=== PATIENT | female | born 1970 | race Hispanic/Latino ===

== ENCOUNTER 2020-03-08 18:11 | Observation (INO) | payer OTHER ==
[~2020-03-08] VITALS: Ht 172.7 cm; Wt 76.7 kg
[2020-03-08] MEDS ORDERED: ONDANSETRON HCL 4 MG/2 ML VIAL ONE (18:52)
[2020-03-08] MEDS ORDERED: SODIUM CHLORIDE 0.9% 1000ML 1,000 ML IV ONE (18:53)
[2020-03-08] MEDS ORDERED: MORPHINE SULFATE 2 MG/ML 1ML SYG ONE (18:53)
[2020-03-08] MEDS ORDERED: CEFOXITIN SODIUM 1 GM VIAL IVP SCH (19:00)
[2020-03-08 19:01] LABS: BASOPHILS % (AUTO) 0.2 % (0.0-5.0); HEMATOCRIT 39.1 % (36-48); LYMPHOCYTES % (AUTO) 7.3 % (21.0-51.0); MEAN CORPUSCULAR HEMOGLOBIN 30.6 pg (27.0-33.0); MEAN CORPUSCULAR HGB CONC 33.8 g/dL (32.0-36.0); MEAN CORPUSCULAR VOLUME 90.5 fL (79-99); MONOCYTES % (AUTO) 5.5 % (3.0-13.0); NEUTROPHILS % (AUTO) 86.6 % (40.0-77.0); PLATELET COUNT (AUTO) 131 K/uL (130-400); RED BLOOD CELL COUNT(AUTO) 4.32 MIL/uL (4.00-5.50); RED CELL DISTRIBUTION WIDTH 13.6 % (11.0-15.5); WHITE BLOOD COUNT (AUTO) 9.3 K/uL (4.8-10.8)
[2020-03-08 19:07] LABS: CREATININE 0.9 mg/dL (0.5-1.5); POTASSIUM 3.2 mmol/L (3.5-5.1)
[2020-03-08] MEDS ORDERED: ACETAMINOPHEN 650 MG SUPPOSITORY RC ONE (19:08)
[2020-03-08 19:12] LABS: ALBUMIN 3.5 g/dL (3.5-5.0); BILIRUBIN,TOTAL 0.7 mg/dL (0.2-1.0); TOTAL PROTEIN, SERUM 7.4 g/dL (6.0-8.3)
[2020-03-08] MEDS ORDERED: SODIUM CHLORIDE 0.9% 1000ML 1,000 ML IV SCH (19:15)
[2020-03-08] MEDS ORDERED: ACETAMINOPHEN 650 MG SUPPOSITORY RC PRN (19:15)
[2020-03-08] MEDS ORDERED: ONDANSETRON HCL 4 MG/2 ML VIAL IVP PRN (19:15)
[2020-03-08 19:29] LABS: INR 1.03 (0.85-1.15); PARTIAL THROMBOPLASTIN TIME 33.8 SEC (26.3-35.5); PROTHROMBIN TIME 11.1 SEC (9.6-11.6)
[2020-03-08] MEDS ORDERED: MAGNESIUM 2GM PREMIX 50ML 50 ML IV PRN (19:45)
[2020-03-08] MEDS: ZOSYN 3.375GM+NS 50ML 50 ML IV SCH (19:45)
[2020-03-08] MEDS ORDERED: ZOSYN 3.375GM+NS 50ML 50 ML IV ONE (20:34)
[2020-03-08 20:52] LABS: APPEARANCE,URINE Clear (CLEAR); BILIRUBIN,URINE Negative (NEGATIVE); COLOR,URINE Yellow (YELLOW); GLUCOSE, URINE (UA) Negative (NEGATIVE); KETONES,URINE 40 mg/dL (NEGATIVE); LEUKOCYTE ESTERASE ,URINE Small (NEGATIVE); NITRATE,URINE Negative (NEGATIVE); OCCULT BLOOD,URINE Moderate (NEGATIVE); PH,URINE 5.5 (5.0-8.0); PROTEIN,URINE Trace mg/dL (NEGATIVE)
[2020-03-08 21:00] LABS: RBC,URINE 0-1 /HPF (0-1)
[2020-03-08 21:01] LABS: BACTERIA,URINE Rare /HPF (None Seen)
[2020-03-08 21:02] LABS: SQUAMOUS EPITHELIAL CELL,UR Few /HPF (0-2)
[2020-03-08 21:10] VITALS: BP 113/64
[2020-03-08] MEDS: POTASSIUM CHLORIDE 20MEQ/100ML 100 ML IV PRN (21:48)
[2020-03-08] MEDS: FAMOTIDINE/PF 20 MG/2 ML VIAL IV SCH (21:48)
[2020-03-08] MEDS: LIDOCAINE HCL-MPF 1% 2ML VIAL IV PRN (21:48)
[2020-03-08] MEDS: LACTATED RINGERS 1000ML 1,000 ML IV SCH (21:49)
[2020-03-08 23:21] VITALS: BP 105/62
[2020-03-09] VITALS (23 sets, daily range): BP systolic 81–124; BP diastolic 45–73
[2020-03-09] MEDS: POTASSIUM CHLORIDE 20MEQ/100ML 100 ML IV PRN (01:39)
[2020-03-09] MEDS: LIDOCAINE HCL-MPF 1% 2ML VIAL IV PRN (01:40)
[2020-03-09] MEDS: MORPHINE SULFATE 2 MG/ML 1ML SYG IVP PRN ×2 (01:46→07:40)
[2020-03-09] MEDS: ZOSYN 3.375GM+NS 50ML 50 ML IV SCH ×3 (02:54→20:26)
[2020-03-09 04:46] LABS: BASOPHILS % (AUTO) 0.1 % (0.0-5.0); HEMATOCRIT 36.4 % (36-48); LYMPHOCYTES % (AUTO) 10.3 % (21.0-51.0); MEAN CORPUSCULAR HEMOGLOBIN 30.7 pg (27.0-33.0); MEAN CORPUSCULAR HGB CONC 33.5 g/dL (32.0-36.0); MEAN CORPUSCULAR VOLUME 91.7 fL (79-99); MONOCYTES % (AUTO) 7.3 % (3.0-13.0); NEUTROPHILS % (AUTO) 82.2 % (40.0-77.0); PLATELET COUNT (AUTO) 104 K/uL (130-400); RED BLOOD CELL COUNT(AUTO) 3.97 MIL/uL (4.00-5.50); RED CELL DISTRIBUTION WIDTH 13.8 % (11.0-15.5); WHITE BLOOD COUNT (AUTO) 6.8 K/uL (4.8-10.8)
[2020-03-09 05:09] LABS: ALBUMIN 3.1 g/dL (3.5-5.0); BILIRUBIN,TOTAL 0.5 mg/dL (0.2-1.0); CREATININE 0.8 mg/dL (0.5-1.5); MAGNESIUM 2.1 mg/dL (1.80-2.40); POTASSIUM 3.8 mmol/L (3.5-5.1); TOTAL PROTEIN, SERUM 6.7 g/dL (6.0-8.3)
[2020-03-09] MEDS: LACTATED RINGERS 1000ML 1,000 ML IV SCH ×3 (06:02→22:48)
[2020-03-09] MEDS: FAMOTIDINE/PF 20 MG/2 ML VIAL IV SCH ×2 (09:00→20:26)
--- NOTE | 2020-03-09 09:30 | NUR ---
INITIAL ASSESSMENT MET Darshan DOBSON PRE OP FOR DC PLANNING- ACTIVE, INDEPENDENT, EMPLOYED, NO DME, NO HH, NO PROVIDER, LIVES W [facility] WHO WILL PROVIDE TRANSPORT, NO DC NEEDS ANTICIPATED. DC HOME Addendum: 03/10/20 at 1711 by JACKELIN PACHECO RN CM Amended: Links added.
[2020-03-09] MEDS ORDERED: DEXAMETHASONE SOD PHOSPHATE 10MG/ML 1ML VIAL ONE (11:50)
[2020-03-09] MEDS ORDERED: SUCCINYLCHOLINE CHLORIDE 20 MG/ML 10 ML VIAL ONE (11:50)
[2020-03-09] MEDS ORDERED: LIDOCAINE PF 2% 5ML ABBOJECT ONE (11:50)
[2020-03-09] MEDS ORDERED: ROCURONIUM 10MG/1ML SYR 10 MG/ML ML ONE (11:51)
[2020-03-09] MEDS ORDERED: ONDANSETRON HCL 4 MG/2 ML VIAL ONE (11:51)
[2020-03-09] MEDS ORDERED: PROPOFOL 10 MG/ML 20ML VIAL IV ONE (11:51)
[2020-03-09] MEDS ORDERED: NEOSTIGMINE 5MG/5ML SYR IV ONE (11:51)
[2020-03-09] MEDS ORDERED: MIDAZOLAM HCL 1 MG/ML 2ML VIAL ONE (11:51)
[2020-03-09] MEDS ORDERED: GLYCOPYRROLATE 1 MG/5 ML SYRINGE ONE (11:51)
[2020-03-09] MEDS ORDERED: FENTANYL CITRATE PF 50 MCG/1 ML 2ML VIAL ONE (11:52)
[2020-03-09] MEDS ORDERED: BUPIVACAINE/PF 0.5% 30ML VIAL ONE (12:14)
[2020-03-09] MEDS ORDERED: KETOROLAC TROMETHAMINE 30MG/ML ONE (13:21)
--- NOTE | 2020-03-09 14:37 | NUR ---
POST OP X 1 PT BACK BY BED WITH JIM RN. PT A/A X 3, VS STABLE NO COMPLICATIONS DRESSING IS DRY AND INTACT. PT RESTING COMFORTABLE, WILL CONTINUE TO MONITOR
--- NOTE | 2020-03-09 14:55 | NUR ---
POST OP X2 PT AT BEDSIDE, CONTINUE TO REST COMFORTABLY IN BED, DRESSING DRY AND INTACT, WILL CONTINUE TO MONITOR
--- NOTE | 2020-03-09 15:10 | NUR ---
POST X 3 PT A/A X 3 NO COMPLAINT OF PAIN, DRESSINGS IS DRY AND INTACT, CONTINUES TO BE AT BEDSIDE, WILL CONTINUE TO MONITOR V/S STABLE
--- NOTE | 2020-03-09 15:25 | NUR ---
POST OP X 4 NO CHANGE IN STATUS V/S STABLE DRESSING DRY AND INTACT, WILL CONTINUE TO MONITOR
--- NOTE | 2020-03-09 15:55 | NUR ---
POST OP 30 MIN X 1 PT SLEEPING IN BED V/S STABLE DRESSING DRY AND INTACT WILL CONTINUE TO MONITOR
--- NOTE | 2020-03-09 16:25 | NUR ---
POST 30 X 2 PT AT BEDSIDE, DRESSING DRY AND INTACT NO PAIN AND V/S STABLE
[2020-03-10 00:31] VITALS: BP 110/71
[2020-03-10] MEDS: ZOSYN 3.375GM+NS 50ML 50 ML IV SCH ×2 (03:56→11:19)
[2020-03-10 05:29] LABS: HEMATOCRIT 31.5 % (36-48); LYMPHOCYTES % (AUTO) 12.3 % (21.0-51.0); MEAN CORPUSCULAR HEMOGLOBIN 30.1 pg (27.0-33.0); MEAN CORPUSCULAR VOLUME 91.3 fL (79-99); MONOCYTES % (AUTO) 8.1 % (3.0-13.0); NEUTROPHILS % (AUTO) 79.4 % (40.0-77.0); PLATELET COUNT (AUTO) 99 K/uL (130-400); RED BLOOD CELL COUNT(AUTO) 3.45 MIL/uL (4.00-5.50); RED CELL DISTRIBUTION WIDTH 13.4 % (11.0-15.5); WHITE BLOOD COUNT (AUTO) 4.6 K/uL (4.8-10.8)
[2020-03-10 05:40] VITALS: BP 107/65
[2020-03-10 05:45] LABS: CREATININE 0.7 mg/dL (0.5-1.5); POTASSIUM 3.7 mmol/L (3.5-5.1)
[2020-03-10 08:00] VITALS: BP 106/64
[2020-03-10] MEDS: FAMOTIDINE/PF 20 MG/2 ML VIAL IV SCH (09:32)
[2020-03-10 12:00] VITALS: BP 113/64
--- NOTE | 2020-03-10 15:30 | NUR ---
DC PT LEFT VIA WHEELCHAIR IN PVT CAR A/A X 3 V/S STABLE DRESSING DRY AND INTACT WITH NO PAIN. F/U APPT SCHEDULED WITH GREGORIO AND TO FOLLOW UP WITH PCP IN 2-3 DAYS. RX GIVEN TO PATIENT NO COMPLICATIONS UPON D/C.
== END 2020-03-10 15:25 | disposition home or self-care (01) ==
LOC: EDH 18:11 → OBSVTOIN 18:12 → INTOOBSV 18:12 → EDHIP 18:12 → 3BH 21:05
PROVIDERS: ADMIT Internal Medicine; ATTEND Internal Medicine
DX: K35.80 Unspecified acute appendicitis (principal); R18.8 Other ascites; K42.9 Umbilical hernia without obstruction or gangrene; K76.0 Fatty (change of) liver, not elsewhere classified; N28.89 Other specified disorders of kidney and ureter
CPT/HCPCS: 36415 ×3; 44970; 74176; 76700; 80048; 80053 ×2; 81001; 81025; 82248; 83605 ×2; 83735; 84145 ×3; 85025 ×3; 85610; 85730; 87040 ×2; 87088; 93005; 96365; 96366 ×2; 96375 ×2; 96376 ×2; 99285; A4215; A4600; A4649 ×4; A4930; A6206; C1769 ×3; G0378 ×7; J0330; J0694; J1100; J1885; J2001; J2250; J2405 ×2; J2543 ×6; J2704; J2710; J3010; J3480 ×2; J3490 ×7; J7030 ×2; J7120 ×4